=== PATIENT | male | born 1990 | race Caucasian/White ===

== ENCOUNTER 2022-12-21 18:46 | Emergency (ER) | payer MEDICAID, SELFPAY ==
[2022-12-21 18:47] VITALS: BP 135/74; PULSE 111; RESP 18; TEMP 36.2; O2SAT 96; BMI 21.7
[2022-12-21] MEDS: dexAMETHasone 10 MG/ML Vial PO.IVFORM (19:48)
--- NOTE | 2022-12-21 19:59 | EX.ED.VIS.UR ---
HPI HPI - URI History of Present Illness Chief Complaint: Sore Throat Narrative Narrative: 32-year-old male presenting with sore throat which has had for 6 days. No difficulty swallowing or breathing. Has not had fever or chills. He does not have body aches. He denies cough or shortness of breath. No nausea or vomiting. Patient has not seen his primary provider or urgent care because he states he works third shift and has not been able to get checked out. He did not test himself or anything at home. No known sick contacts. ROS ROS ED Constitutional Constitutional ED: Denies chills, fever(s) or sweats Eyes Eyes: Denies blurry vision or change in vision ENT ENT ED: Reports sore throat; Denies ear pain Cardiovascular Cardiovascular: Denies chest pain, palpitations or racing heartbeat Respiratory/Chest Respiratory/Chest: Denies cough, dyspnea or sputum Gastrointestinal Gastrointestinal: Denies abdominal pain, constipation, diarrhea, nausea or vomiting Genitourinary Genitourinary ED: Denies dysuria, hematuria or urinary frequency Musculoskeletal Musculoskeletal: Denies arthralgias, myalgias or neck pain Integumentary Denies abscess, Abrasions or rash Neurologic Neurologic: Denies headache(s), paresthesias or weakness Psychiatric Psychiatric: Denies anxiety, depression, suicidal ideation or suicidal thoughts Endocrine Endocrinology: Denies polydipsia or polyuria PFSH PFSH Home Medications albuterol sulfate 90 mcg/actuation aerosol inhaler (Ventolin HFA) 1 - 2 puff inhalation Q4H PRN PRN Wheezing ##1 03/22/15 [Rx Last Taken Unknown] naproxen 500 mg tablet (Naprosyn) 500 mg PO BID PRN pain #20 tabs 12/21/22 [Rx Last Taken Unknown] Allergy/AdvReac Type Severity Reaction Status Date / Time No Known Allergies Allergy Verified 03/22/15 21:51 Social History Smoking Status: Current some day smoker tobacco type: cigarettes EXAM Physical Exam Const Vital Signs: 12/21/22 18:47 Temperature 97.2 F L Temperature Source Temporal Pulse Rate 111 H Respiratory Rate 18 Blood Pressure 135/74 H Blood Pressure Mean 94 Pulse Ox 96 Oxygen Delivery Method Room Air Positive well nourished General Appearance ED: NAD; Negative for pallor HEENT Reports moist mucous membranes normocephalic and atraumatic Throat: posterior oropharynx normal Eyes PERRL and EOMs intact bilaterally Neck no lymphadenopathy and supple General: Negative for anterior neck swelling Resp normal respiratory effort and clear to auscultation bilaterally Auscultation: Negative for rales, rhonchi or wheezes Cardio Rate: regular rate Rhythm: regular rhythm Neuro oriented x3 and CN's II-XII intact bilaterally Sensorium / Orientation: alert Motor Exam: strength 5/5 throughout Psych mental status grossly normal Skin General Skin Exam: Negative for jaundice or pallor MDM MDM MDM Narrative Medical decision making narrative: Patient presenting for sore throat for a week. He does not have any other systemic signs or symptoms. If this was due to a viral syndrome he is outside the treatment window for anything. No believe he is tested for COVID or influenza. I will test him for strep although he does not have any exudates, fever, lymphadenopathy the patient expresses concern that something is wrong with his throat. His HEENT exam is completely normal. Dentition are normal. Patient was given 10 mg of Decadron p.o.. Rapid strep was negative. Patient counseled this is likely something viral in nature. Wrote impression for Naprosyn. A work note was given for tonight. Patient discharged in stable condition. Impression: 1. Pharyngitis Lab Data Attestation: I reviewed the patient's lab results. Discharge Plan Triage Chief Complaint: Sore Throat ED Provider: Abner Mayo Dx/Rx/DC Orders Instructions: ED Pharyngitis, Viral Prescriptions: New naproxen [Naprosyn] 500 mg tablet 500 mg PO BID PRN (Reason: pain) Qty: 20 0RF No Action albuterol sulfate [Ventolin HFA] 1 INHALER inhaler 1 - 2 puff inhalation Q4H PRN PRN (Reason: Wheezing) Qty: 1 0RF Stand Alone Forms: ED Work / School Excuse Primary Care Provider: Care Physician,No Primary Referrals: Con Uribe MD [Med Staff - Active Staff] - 3-5 Days Care Physician,No Primary [Primary Care Provider] - Disposition Disposition: Home, Self Care
== END 2022-12-21 21:03 | disposition home or self-care (01) ==
PROVIDERS: Emergency Provider Student in an Organized Health Care Education/Training Program; Visit Provider Student in an Organized Health Care Education/Training Program
DX: J02.9 Acute pharyngitis, unspecified (principal); F17.210 Nicotine dependence, cigarettes, uncomplicated
CPT/HCPCS: 87880; 99283